=== PATIENT | male | born 1965 | race Caucasian/White ===

== ENCOUNTER 2018-07-25 15:02 | Emergency (ER) | payer OTHER ==
[~2018-07-25] VITALS: Ht 190.5 cm; Wt 99.8 kg
[~2018-07-25 15:02] MED LIST: LEXAPRO10 MG ORAL; SEROQUEL100 MG ORAL
--- NOTE | 2018-07-25 15:19 | Emergency Room Report ---
History of Present Illness General Chief Complaint: Behavioral Complaint Source: Patient (Laz Mason MD) Present Illness HPI Patient presents to the emergency department today complaining of drug overdose. Patient has a history of depression and he is post be taking Lexapro and Seroquel. He has not been taking them well and instead has been feeling depressed. Shortly prior to arrival he decided to take multiple tablets of Seroquel and Lexapro. He thinks that he might have taken about 20 tablets. He denies any fever chest pain shortness of breath. He also attempted to slash his wrists. There is several superficial wound to his bilateral risk at the volar aspect. He called 911 because he decided that he did not want to . No other complaints are noted. Symptoms noted to be severe. Patient denies any drug use.No other modifying factors. No other associated signs and symptoms. No other complaints were noted. (Laz Mason MD) Allergies: Coded Allergies: No Known Allergies (Unverified , 07/25/18) Patient History Past Medical History: psych hx - Anxiety Past Surgical History: none Pertinent Family History: none Social History: Denies: smoking, alcohol use, drug use Reviewed Nursing Documentation: PMH: Agreed; PSxH: Agreed (Laz Mason MD) Nursing Documentation-PMH Past Medical History: No History, Except For History Of Psychiatric Problem: Yes - anxiety (Laz Mason MD) Review of Systems All Other Systems: negative except mentioned in HPI (Laz Mason MD) Physical Exam Vital Signs Date Time Temp Pulse Resp B/P (MAP) Pulse Ox O2 Delivery O2 Flow Rate FiO2 07/25/18 14:53 98.2 125 18 111/75 98 Room Air 98.2 Sp02 EP Interpretation: reviewed, normal General Appearance: normal inspection, alert, moderate distress Head: atraumatic Eyes: bilateral eye normal inspection ENT: normal ENT inspection, hearing grossly normal, normal voice Neck: normal inspection, full range of motion, supple, no bony tend Respiratory: normal inspection, lungs clear, normal breath sounds, no respiratory distress, no retraction, no wheezing Cardiovascular #1: regular rate, rhythm, no edema Gastrointestinal: normal inspection, normal bowel sounds, non tender, soft, no guarding, no hernia Genitourinary: no CVA tenderness Musculoskeletal: normal inspection, back normal, normal range of motion Neurologic: normal inspection, alert, responsive, speech normal Psychiatric: depressed affect, anxious Skin: other - Multiple superficial lac bilateral wrist (Laz Mason MD) Procedures Critical Care Time Critical Care Time Patient had a critical medical condition which untreated could potentially result in life or limb threatening injury. Total critical care time excluding procedures was approximately 45 minutes. (Laz Mason MD) Laceration/Wound Repair Laceration/Wound Repair #1: Consent: Verbal Wound Location: upper extremity - left wrist Wound's Depth, Shape: superficial Wound Length (cm): 5 Wound Explored: contaminated Irrigated w/ Saline (ccs): 10 Betadine Prep?: Yes Anesthesia: 1% Lidocaine Volume Anesthetic (ccs): 3 Wound Debrided: extensive Wound Repaired With: sutures - 1 continuous running suture, Dermabond - on 3 linear supericial lacerations surrounding larger sutured laceration Suture Size/Type: 4:0, other - ethilon Number of Sutures: 1 Layer Closure?: No Sterile Dressing Applied?: Yes Splint Applied?: No Sling Applied?: No Patient Tolerated: Well Complications: None Laceration/Wound Repair #2: Consent: Verbal Wound Location: upper extremity - right wrist Wound's Depth, Shape: superficial Wound Length (cm): 7 Wound Explored: contaminated Irrigated w/ Saline (ccs): 10 Betadine Prep?: Yes Anesthesia: 1% Lidocaine Volume Anesthetic (ccs): 3 Wound Debrided: extensive Wound Repaired With: sutures - one running suture and one simple interrupted suture, Dermabond - on 1 superifical linear laceration surrounding larger sutured laceration Suture Size/Type: 4:0, other - ethilon Number of Sutures: 2 Layer Closure?: No Sterile Dressing Applied?: Yes Splint Applied?: No Sling Applied?: No Patient Tolerated: Well Complications: None (Juwan Asher P.ABoyd) Medical Decision Making PA Attestation Dr. Mason is my supervising Physician whom patient management has been discussed with. (Juwan Asher P.A.) Diagnostic Impression: Primary Impression: Suicidal ideation Additional Impressions: Laceration of wrist, left Laceration of wrist, right Drug overdose Depression ER Course Patient presents emergency department today with suicidal ideation and ingestion of pills. Differential considerations include acute overdose, nontoxic overdose, laceration to the wrist, tendon involvement, electrolyte abnormality, severe depression just name a few.Given the severity of the patient 's presentation I felt this is a highly complex patient. This patient required extensive workup. Patient initially was tachycardic IV was initiated patient was given fluids with good improvement in symptoms. Case was discussed with poison center was felt that given patient's presentation patient will require 12 hours of monitoring. Patient underwent extensive workup all which were negative at this time. Except for positive marijuana. Patient will be medically cleared after 12 hours. Patient require suturing of the wrist please refer to procedure note. Labs Test 07/25/18 15:45 White Blood Count 12.3 K/UL (4.8-10.8) Red Blood Count 4.70 M/UL (4.70-6.10) Hemoglobin 15.1 G/DL (14.2-18.0) Hematocrit 42.6 % (42.0-52.0) Mean Corpuscular Volume 90 FL (80-99) Mean Corpuscular Hemoglobin 32.2 PG (27.0-31.0) Mean Corpuscular Hemoglobin Concent 35.5 G/DL (32.0-36.0) Red Cell Distribution Width 11.0 % (11.6-14.8) Platelet Count 171 K/UL (150-450) Mean Platelet Volume 10.1 FL (6.5-10.1) Neutrophils (%) (Auto) % (45.0-75.0) Lymphocytes (%) (Auto) % (20.0-45.0) Monocytes (%) (Auto) % (1.0-10.0) Eosinophils (%) (Auto) % (0.0-3.0) Basophils (%) (Auto) % (0.0-2.0) Differential Total Cells Counted 100 Neutrophils % (Manual) 89 % (45-75) Lymphocytes % (Manual) 8 % (20-45) Monocytes % (Manual) 3 % (1-10) Eosinophils % (Manual) 0 % (0-3) Basophils % (Manual) 0 % (0-2) Band Neutrophils 0 % (0-8) Platelet Estimate Adequate Platelet Morphology Normal Sodium Level 135 MMOL/L (136-145) Potassium Level 3.3 MMOL/L (3.5-5.1) Chloride Level 100 MMOL/L (98-107) Carbon Dioxide Level 26 MMOL/L (21-32) Anion Gap 9 mmol/L (5-15) Blood Urea Nitrogen 19 mg/dL (7-18) Creatinine 1.5 MG/DL (0.55-1.30) Estimat Glomerular Filtration Rate 49.5 mL/min (>60) Glucose Level 154 MG/DL (74-106) Calcium Level 9.0 MG/DL (8.5-10.1) Total Bilirubin 1.1 MG/DL (0.2-1.0) Direct Bilirubin 0.2 MG/DL (0.0-0.3) Aspartate Amino Transf (AST/SGOT) 15 U/L (15-37) Alanine Aminotransferase (ALT/SGPT) 21 U/L (12-78) Alkaline Phosphatase 55 U/L (46-116) Total Protein 7.8 G/DL (6.4-8.2) Albumin 4.1 G/DL (3.4-5.0) Globulin 3.7 g/dL Albumin/Globulin Ratio 1.1 (1.0-2.7) Salicylates Level < 0.2 ug/mL (2.8-20) Urine Opiates Screen Negative (NEGATIVE) Acetaminophen Level < 2 MCG/ML (10-30) Urine Barbiturates Screen Negative (NEGATIVE) Phencyclidine (PCP) Screen Negative (NEGATIVE) Urine Amphetamines Screen Negative (NEGATIVE) Urine Benzodiazepines Screen Negative (NEGATIVE) Urine Cocaine Screen Negative (NEGATIVE) Urine Marijuana (THC) Screen Positive (NEGATIVE) Serum Alcohol < 3 mg/dL (Laz Mason MD) EKG Diagnostic Results Rate: tachycardiac Rhythm: NSR ST Segments: no acute changes (Laz Mason MD) Rhythm Strip Diag. Results EP Interpretation: yes Rate: 130 Rhythm: NSR, no PVC's, no ectopy (Laz Mason MD) Last Vital Signs Date Time Temp Pulse Resp B/P (MAP) Pulse Ox O2 Delivery O2 Flow Rate FiO2 07/25/18 14:53 98.2 125 18 111/75 98 Room Air 98.2 Status: improved (Laz Mason MD) Disposition: XFER TO PSYCH HOSP/UNIT Condition: Serious Laz Mason MD Jul 25, 2018 15:19 Juwan Asher Jul 25, 2018 16:58
[2018-07-25] MEDS ORDERED: Tetanus/Diptheria/Pertussis Vaccine 0.5ml Syr IM ONE (15:30)
[2018-07-25 16:24] LABS: HEMATOCRIT 42.6 % (42.0-52.0); HEMOGLOBIN 15.1 G/DL (14.2-18.0); MEAN CORPUSCULAR VOLUME 90 FL (80-99); PLATELET COUNT 171 K/UL (150-450); WHITE BLOOD COUNT 12.3 K/UL (4.8-10.8)
[2018-07-25 16:31] LABS: ANION GAP 9 mmol/L (5-15); BLOOD UREA NITROGEN 19 mg/dL (7-18); CARBON DIOXIDE 26 MMOL/L (21-32); CHLORIDE 100 MMOL/L (98-107); CREATININE 1.5 MG/DL (0.55-1.30); POTASSIUM 3.3 MMOL/L (3.5-5.1); SODIUM 135 MMOL/L (136-145)
[2018-07-25 16:41] LABS: ALANINE AMINOTRANSFERASE 21 U/L (12-78); ALBUMIN 4.1 G/DL (3.4-5.0); ALBUMIN/GLOBULIN RATIO 1.1 (1.0-2.7); ALKALINE PHOSPHATASE 55 U/L (46-116); ASPARTATE AMINO TRANSFERASE 15 U/L (15-37); BILIRUBIN,TOTAL 1.1 MG/DL (0.2-1.0)
[2018-07-25 16:42] LABS: BILIRUBIN,DIRECT 0.2 MG/DL (0.0-0.3)
[2018-07-25] MEDS ORDERED: Bacitracin Oint UD TOPIC ONE ×2 (16:57→17:00)
[2018-07-25 17:02] VITALS: BP 132/85
[2018-07-25 18:00] VITALS: BP 112/73
[2018-07-25 22:49] VITALS: BP 124/79
[2018-07-26 03:37] VITALS: BP 158/94
[2018-07-26 08:00] VITALS: BP 153/98
[2018-07-26 12:00] VITALS: BP 150/92
[2018-07-26 16:00] VITALS: BP 152/97
[2018-07-26 17:10] VITALS: BP 140/97
[2018-07-26 22:11] VITALS: BP 140/97
[2018-07-27] VITALS (7 sets, daily range): BP systolic 120–166; BP diastolic 79–104
[2018-07-27] MEDS ORDERED: LEXAPRO10 MG ORAL (08:44)
[2018-07-27] MEDS ORDERED: QUETIAPINE FUMA50 MG ORAL (08:44)
--- NOTE | 2018-07-27 15:33 | Cardiology Report ---
APPROVED REPORT EKG Measurement Heart [id number] Sinus tachycardia Nonspecific ST abnormality Abnormal ECG
[2018-07-27] MEDS ORDERED: cloNIDine 0.2mg Tab ORAL ONE (22:00)
[2018-07-27] MEDS ORDERED: Metoprolol Tartrate 50mg tab ORAL ONE (23:30)
[2018-07-28 00:20] VITALS: BP 155/92
== END 2018-07-28 00:20 ==
LOC: EDBD → EMR 15:30
DX: S61.512A Laceration without foreign body of left wrist, initial encounter (principal); S61.511A Laceration without foreign body of right wrist, initial encounter; T43.292A Poisoning by other antidepressants, intentional self-harm, initial encounter; R45.851 Suicidal ideations; Z23 Encounter for immunization; X78.9XXA Intentional self-harm by unspecified sharp object, initial encounter; Y93.9 Activity, unspecified; Y92.9 Unspecified place or not applicable; Y99.9 Unspecified external cause status
CPT/HCPCS: 12034; 36415; 80053; 80307; 82248; 85007; 85025; 90471; 90715; 93005; 96360; 99291; G0480; J0360; 80329

== ENCOUNTER 2018-07-28 03:39 | Emergency (ER) | payer OTHER ==
[~2018-07-28] VITALS: Ht 188 cm; Wt 97.5 kg
[2018-07-28 02:31] VITALS: BP 155/94
--- NOTE | 2018-07-28 02:43 | Emergency Room Report ---
History of Present Illness General Chief Complaint: Hypertension Source: Patient Present Illness HPI This is a 52-year-old male with a history of depression and suicidal thoughts. He presents with chief complaint of high blood pressure. He has been here for work 2 days for overdose and suicidal mediation. He has a history of high blood pressure but not on medication. Her blood pressure was elevated here and he was given medication prior to being transported to psychiatric facility. He was sent back because his blood pressure was elevated. They could not take care of that over there. Patient denies any symptom. No nausea no vomiting no fever chills but denies any other complaint. Patient said that he doesn't want to take high blood pressure medication because his parents were on blood pressure medication and his diet of complication from hypertension. For some reason, he thinks a blood pressure pill was the cause of the problem. He said he felt better now. No suicidal thoughts or homicidal thought. No delusion or hallucination. He doesn't want hurt himself. Allergies: Coded Allergies: No Known Allergies (Unverified , 07/25/18) Patient History Past Medical History: see triage record, old chart reviewed, HTN, psych hx Past Surgical History: other Pertinent Family History: none Social History: Reports: smoking Immunizations: other Reviewed Nursing Documentation: PMH: Agreed; PSxH: Agreed Nursing Documentation-PMH History Of Psychiatric Problem: Yes Review of Systems Eye: Denies: eye pain, blurred vision ENT: Denies: ear pain, nose congestion, throat swelling Respiratory: Denies: cough, shortness of breath Cardiovascular: Denies: chest pain, palpitations Gastrointestinal: Denies: abdominal pain, diarrhea, nausea, vomiting Musculoskeletal: Denies: back pain, joint pain Skin: Denies: rash Neurological: Denies: headache, numbness Endocrine: Denies: increased thirst, increased urine Hematologic/Lymphatic: Denies: easy bruising All Other Systems: negative except mentioned in HPI Physical Exam Vital Signs Date Time Temp Pulse Resp B/P (MAP) Pulse Ox O2 Delivery O2 Flow Rate FiO2 07/28/18 01:48 98.6 94 16 155/94 94 Room Air 98.6 vitals with high blood pressure Sp02 EP Interpretation: reviewed, normal General Appearance: well appearing, no apparent distress, alert Head: normocephalic, atraumatic Eyes: bilateral eye PERRL, bilateral eye EOMI ENT: hearing grossly normal, normal pharynx Neck: full range of motion, supple, no meningismus Respiratory: chest non-tender, lungs clear, normal breath sounds Cardiovascular #1: regular rate, rhythm, no murmur Gastrointestinal: normal bowel sounds, non tender, no mass, no organomegaly, no bruit, non-distended Musculoskeletal: back normal, gait/station normal, normal range of motion Psychiatric: mood/affect normal Skin: warm/dry Medical Decision Making Diagnostic Impression: Primary Impression: Hypertension Qualified Codes: I10 - Essential (primary) hypertension Additional Impressions: Laceration of wrist, left Qualified Codes: S61.512A - Laceration without foreign body of left wrist, initial encounter Drug overdose Qualified Codes: T50.902A - Poisoning by unspecified drugs, medicaments and biological substances, intentional self-harm, initial encounter ER Course Patient presents with hypertension. He does not want to be admitted to the hospital. He does not want to be on medication. No evidence of endorgan damage. He is competent to make a disposition decision not to take medication. Is no longer suicidal or homicidal. We'll get psychiatric evaluation for clearance from the 5150. Because of his hypertension, unable to transfer him to psychiatric facility. Last Vital Signs Date Time Temp Pulse Resp B/P (MAP) Pulse Ox O2 Delivery O2 Flow Rate FiO2 07/28/18 02:31 94 16 Room Air 07/28/18 02:31 98.6 155/94 94 98.6 Status: improved Disposition: HOME, SELF-CARE Condition: Stable Additional Instructions: follow-up your doctor in 7 days. Follow up with mental health clinic also. Return if symptoms worsen. Because you refuse to take blood pressure medication , you increase your risk for stroke, heart attacks, kidney failure and early . Rishi Kaufman MD Jul 28, 2018 02:43
[~2018-07-28 03:39] MED LIST changes: +Acetaminophen 500mg (ES) tab ORAL ONE; +QUETIAPINE FUMA50 MG ORAL
[2018-07-28 04:30] VITALS: BP 147/87
[2018-07-28 06:04] VITALS: BP 142/85
[2018-07-28] MEDS ORDERED: Bacitracin Oint UD TOPIC ONE ×2 (07:24→07:30)
[2018-07-28 08:20] VITALS: BP 164/98
[2018-07-28 11:12] VITALS: BP 156/87
[2018-07-28 13:30] VITALS: BP 156/87
--- NOTE | 2018-07-29 | Consultation ---
DATE OF CONSULTATION: 07/28/2018 HISTORY OF PRESENT ILLNESS: This is a 52-year-old male with history of depression and anxiety as well as ____ has been admitted to the hospital after he had a suicide attempt by cutting his wrists and taken several pills. The patient was transferred from the ER to mental health facility ____ ER for high blood pressure. The patient stated that he is not suicidal anymore and does not feel an imminent danger to self or others. During the evaluation, the patient stated that his depression is rather more situational. He is ____ and has financial issues. Also, his job is very stressful. The patient currently does not endorse any suicidal or homicidal ideation. The staff called his who came and picked the patient up and the patient will follow up with outpatient psychiatrist. PAST PSYCHIATRIC HISTORY: No psychiatric hospitalization. Never had any suicide attempts before. PAST MEDICAL HISTORY: Hypertension. ALLERGIES: No known drug allergies. SUBSTANCE ABUSE HISTORY: No known history of illicit drug use or alcohol. MENTAL STATUS EXAMINATION: The patient is alert, oriented times self, place, and situation. His mood is dysphoric. Affect is constricted, congruent with mood. Thought process is concrete. Thought content, no suicidal, homicidal ideation. No psychotic symptoms. Insight and judgment is fair. ASSESSMENT: AXIS I Major depressive disorder, adjustment disorder. AXIS II Deferred. AXIS III As above. AXIS IV Moderate. AXIS V 60. PLAN: The patient is not currently an imminent danger to self or others. He is not gravely disabled. He is discharged to his who is going to pick him up from the hospital and he will be followed up with outpatient psychiatrist. Whit Muñiz M.D. DR: LIZET JOB#: [id number] CC:
== END 2018-07-28 13:30 | disposition home or self-care (01) ==
LOC: EDBD 03:39 → EMR 03:46
DX: I10 Essential (primary) hypertension (principal); F32.89 Other specified depressive episodes; F43.20 Adjustment disorder, unspecified; Z72.0 Tobacco use
CPT/HCPCS: 99283